=== PATIENT | female | born 1975 | race Caucasian/White ===

== ENCOUNTER 2018-06-24 10:52 | Outpatient (CLI) | payer OTHER ==
--- NOTE | 2018-06-24 14:24 | MRI ---
LEFT FOREFOOT MRI WITHOUT IV CONTRAST: History: Prior Cartiva implant placed in the summer of 2018, now having foot and big toe stiffness and pain. Technique: Multiplanar, multisequence MRI examination of the forefoot is performed. FINDINGS: There is evidence for an implant in the distal fifth metatarsal. There is some minimal fluid density at the proximal portion of the implant as well as some marrow edema in the first metatarsal extending to the mid portion of the metatarsal. There is abnormal signal associated with the lateral sesamoid at the metatarsal phalangeal joint, evidence for fracture or sesamoiditis. The medial sesamoid does n ot show any significant abnormal marrow edema. There are arthrosis changes of the first metatarsal ph alangeal joint. Both sesamoids appear to be slightly more cranially positioned, this could possibly s uggest some associated ligamentous injury. IMPRESSION: Cartiva implant in the distal first metatarsal with minimal fluid density adjacent to it as well as a bnormal marrow signal extending in the first metatarsal to the mid portion raising concern for the po ssibility of infection. This could conceivably be related to loosening. Poorly defined metatarsal pha langeal joint with a small amount of fluid. Abnormal marrow signal in the lateral sesamoid bone which has a somewhat fragmented appearance, possibly related to fracture or a bipartite sesamoid with sesa moiditis. Both of the sesamoids may be very slightly more cephalad in location, raising concern for s ome nonspecific ligamentous injury at the first metatarsal phalangeal joint. This joint space is narr owed and poorly defined. No evidence for drainable abscess. POS: AISHWARYA
== END 2018-06-24 10:53 | disposition home or self-care (01) ==
LOC: SCSMRI 10:52
PROVIDERS: ATTEND Podiatrist Foot & Ankle Surgery
DX: T84.9XXA Unspecified complication of internal orthopedic prosthetic device, implant and graft, initial encounter (principal); M20.22 Hallux rigidus, left foot

== ENCOUNTER 2019-07-18 07:22 | Day surgery (SDC) | payer OTHER ==
[2019-07-10 15:34] VITALS: BMI 29.6
--- NOTE | 2019-07-17 11:38 | HP ---
HISTORY OF PRESENT ILLNESS: Ms. Chandler is a very pleasant 43-year-old woman, here today to discuss several years worth of posterior neck pain that at times it radiate into her arm that in the spring became severe and has not relented ever since. Pain radiates into the right upper extremity down to the hand and fits a combination of both C6 and C7 components. She has numbness and tingling in the same distribution and feels at times that does affect her handwriting. She has attempted physical therapy, chiropractics, [id number] prescription medications, home traction and exercises, trigger point injections as well as epidural steroid injection, all of which provided little if any relief. Her pains are worsened with activity over shoulder height and when looking certain ways. MRI from [facility] reveals bilateral neuroforaminal narrowing at multiple levels, however, is most severe from C5-C7 and fits her symptoms well. PHYSICAL EXAMINATION: GENERAL: She is alert and oriented x3. Gait is normal. No ataxia. EXTREMITIES: Upper extremity motor exam reveals 5/5 strength in all movements in the bilateral upper extremities. She has a positive right Spurling's maneuver but negative on the left. PAST MEDICAL HISTORY: Significant for neck pain. CURRENT MEDICATIONS: 1. Aleve. 2. Methocarbamol. 3. Chantix. ALLERGIES: PENICILLIN, ANTIBIOTICS. SURGICAL HISTORY: Unspecified left toe surgery, partial hysterectomy and laparoscopy. ASSESSMENT: Cervical radiculopathy. PLAN: Dr. Ham met with the patient, reviewed imaging, and advocated for a C5-C7 ACDF. He explained to the patient risks, benefits, and alternatives to the procedure. The patient expressed understanding and elected to move forward with surgery as discussed. I do believe the patient is mentally competent and capable of making medical decisions for herself. We will move forward with surgery as planned. Job ID: [id number]
[2019-07-18] MEDS ORDERED: Clindamycin/D5W 900 mg/50 ml Premix Bag ONE (08:05)
[2019-07-18] MEDS ORDERED: Levofloxacin 500 mg/D5W 100 ml Premix Bag ONE (08:05)
[2019-07-18] MEDS ORDERED: Fentanyl 100 MCG/2 ML VIAL ONE ×3 (09:42→11:26)
[2019-07-18] MEDS ORDERED: Dexamethasone 20 MG/5 ML VIAL ONE (10:13)
[2019-07-18] MEDS ORDERED: Rocuronium Bromide 10 MG/ML (10ML VIAL) ONE (10:13)
[2019-07-18] MEDS ORDERED: Ondansetron PF 4 MG/2 ML Vial ONE (10:13)
[2019-07-18] MEDS ORDERED: Lidocaine 1% PF 5 ML VIAL ONE (10:13)
[2019-07-18] MEDS ORDERED: PROPOFOL 200 MG/20 ML VIAL ONE (10:13)
[2019-07-18] MEDS ORDERED: Cyclobenzaprine 10 MG TAB ONE (11:37)
--- NOTE | 2019-07-18 11:57 | OP ---
DATE OF PROCEDURE: 07/18/2019 STATION EXAMINER: Jhonny Goetz PA-C. INDICATION: Pain. DIAGNOSIS: Cervical radiculopathy. PROCEDURE PERFORMED: Anterior cervical diskectomy and fusion, C5 through C7. ANESTHESIA: General. DESCRIPTION OF PROCEDURE: The patient was brought into the operating room and placed under general anesthesia. She was placed on table in a supine position. A transverse incision was planned over the lateral aspect of the neck on the right. After prepping and draping and after an appropriate preoperative pause, the incision was created. The underlying platysma muscle was identified and incised. A blunt tissue plane anterior to the sternocleidomastoid muscle was used to gain access to the prevertebral space. Vein retractors were placed and a C-arm image was obtained to confirm the appropriate level. An annulotomy was then performed at the C6-C7 disk space. All disk material as well as anterior posterior osteophytes were removed. After complete decompression, a 6-mm lordotic PEEK cage packed with allograft and autograft material was placed within the interbody space. We then redirected our attention to the level above at C5-C6, where again an annulotomy was performed. All disk material as well as anterior and posterior osteophytes were removed. After completing the decompression, a 6-mm lordotic PEEK cage packed with allograft and autograft material was placed within the interbody space. An anterior cervical plate was then fashioned to the front of spine and secured with a total of 6 screws. Midline and lateral structures were then inspected and found to be free from significant trauma. The wound was irrigated. Hemostasis was maintained throughout. The wound was then closed in anatomic layers and a pressure dressing was applied. There were no known procedural complications. Job ID: [id number]
== END 2019-07-18 13:30 | disposition home or self-care (01) ==
LOC: SDC 07:22
PROVIDERS: ATTEND Neurological Surgery
PROC: 0RT30ZZ Resection of Cervical Vertebral Disc, Open Approach (ICD-10-PCS; principal; 2019-07-18)
PROC: 0RG20A0 Fusion of 2 or more Cervical Vertebral Joints with Interbody Fusion Device, Anterior Approach, Anterior Column, Open Approach (ICD-10-PCS; principal; 2019-07-18)
PROC: 0RG2070 Fusion of 2 or more Cervical Vertebral Joints with Autologous Tissue Substitute, Anterior Approach, Anterior Column, Open Approach (ICD-10-PCS; principal; 2019-07-18)
PROC: 0RG20J0 Fusion of 2 or more Cervical Vertebral Joints with Synthetic Substitute, Anterior Approach, Anterior Column, Open Approach (ICD-10-PCS; principal; 2019-07-18)
DX: M54.12 Radiculopathy, cervical region (principal); Z79.1 Long term (current) use of non-steroidal anti-inflammatories (NSAID); Z79.899 Other long term (current) drug therapy; Z88.0 Allergy status to penicillin; Z88.1 Allergy status to other antibiotic agents
CPT/HCPCS: 76000; C1713; C1776; J0690; J1100; J1956; J2001; J2405; J2704; J3010; J3490